=== PATIENT | male | born 1945 | race Two or more races ===

== ENCOUNTER 2022-08-11 00:04 | Inpatient (IN) | payer OTHER ==
[~2022-08-11] VITALS: Ht 182.9 cm; Wt 102.1 kg
--- NOTE | 2022-08-11 00:30 | NUR ---
BLOOD COLLECTED, SENT TO LAB.
[2022-08-11 01:06] LABS: BASOPHILS % (AUTO) 0.2 % (0.0-2.0); HEMATOCRIT 38 % (39-51); HEMOGLOBIN 12.6 g/dL (13.5-17.5); LYMPHOCYTES # (AUTO) 1.4 K/uL (0.8-4.8); LYMPHOCYTES % (AUTO) 17.4 % (20.0-44.0); MEAN CORPUSCULAR HGB CONC 33 g/dl (31.0-36.0); MEAN CORPUSCULAR VOLUME 96 fL (80-96); MONOCYTES # (AUTO) 0.9 K/uL (0.1-1.30); MONOCYTES % (AUTO) 11.6 % (2.0-12.0); NEUTROPHILS # (AUTO) 5.5 K/uL (1.8-8.9); NEUTROPHILS % (AUTO) 69.8 % (43.0-81.0); PLATELET COUNT (AUTO) 219 K/uL (150-450); WHITE BLOOD COUNT (AUTO) 7.9 K/uL (4.3-11.0)
[2022-08-11 01:36] LABS: SERUM AMMONIA 17 umol/L (11-32)
[2022-08-11 01:40] LABS: ALANINE AMINOTRANSFERASE 22 U/L (12-78); ALBUMIN 3.9 g/dL (3.4-5.0); ALCOHOL, BLOOD < 3 mg/dL (0-0); ALKALINE PHOSPHATASE 58 U/L (46-116); ASPARTATE AMINOTRANSFERASE 21 U/L (15-37); BILIRUBIN,DIRECT 0.2 mg/dL (0.0-0.2); BILIRUBIN,TOTAL 0.8 mg/dL (0.2-1.0); CARBON DIOXIDE 26 mmol/L (21-32); CHLORIDE 105 mmol/L (98-107); CREATININE 1.5 mg/dL (0.6-1.3); GLUCOSE 161 mg/dL (74-106); POTASSIUM 3.9 mmol/L (3.5-5.1); SODIUM SERUM 142 mmol/L (136-145); TOTAL PROTEIN, SERUM 7.5 g/dL (6.4-8.2); UREA NITROGEN, BLOOD 28 mg/dL (7-18)
--- NOTE | 2022-08-11 01:42 | NUR ---
URINE COLLECTED, SENT TO LAB.
[2022-08-11 02:07] LABS: BILIRUBIN,URINE NEGATIVE (NEGATIVE); COLOR,URINE YELLOW (YELLOW); LEUKOCYTE ESTERASE ,URINE NEGATIVE (NEGATIVE); NITRITE, URINE NEGATIVE (NEGATIVE); PH,URINE 5.5 (5.0-8.0); PROTEIN,URINE NEGATIVE (NEGATIVE); UGLUCOSE NEGATIVE (NEGATIVE); UROBILINOGEN,URINE 0.2 EU/dL (0.2)
[2022-08-11 02:08] LABS: BACTERIA,URINE Rare /HPF (None Seen); RBC,URINE 0-2 /HPF (0-2); SQUAMOUS EPITHELIAL CELL,UR Moderate /HPF (None Seen); WBC,URINE 0-2 /HPF (0-3)
[2022-08-11] MEDS ORDERED: MAGNESIUM HYDROXIDE 30 ML UDC PO PRN (06:00)
[2022-08-11] MEDS ORDERED: Z GUARD REMEDY 4 OZ OINT TP PRN (06:00)
[2022-08-11] MEDS ORDERED: MAG HYDROX/AL HYDROX/SIMETH 30 ML UDC PO PRN (06:00)
[2022-08-11] MEDS ORDERED: ACETAMINOPHEN 325 MG TABLET PO PRN (06:00)
[2022-08-11] MEDS ORDERED: ONDANSETRON HCL/PF 4 MG/2 ML VIAL IVP PRN (06:00)
--- NOTE | 2022-08-11 08:17 | NUR ---
PT SLEEPING IN BED. BREATHING EVEN AND UNLABORED. CONNECTED TO MONITOR. VSS.
--- NOTE | 2022-08-11 09:28 | NUR ---
ROOM 308-1
--- NOTE | 2022-08-11 09:36 | NUR ---
REPORT GIVEN TO AMANDA FOR ONESIMO
--- NOTE | 2022-08-11 10:00 | NUR ---
RN NOTE PATIENT WAS TRANSFERRED FROM ER TO UNIT VIA GURNEY WITH NO SIGNS OF DISTRESS NOTED. V/S TAKEN, STABLE, RECORDED. BELONGING CHECKED AND BELONGING LIST SIGNED BY RN AND GARAGE CONSTRUCTION EQUIPMENT MECHANIC, PATIENT MONEY WAS PLACED IN THE SAFE (20 X 382= $7640). SKIN ASSESSMENT DONE AND PICTURES TAKEN. A/O X0, ALTER MENTAL STATUS, UNCOOPERATIVE, UNABLE TO FOLLOW DIRECTIONS, PATIENT WAS HITTING STAFF, TAKING OFF BREAKFAST ATTENDANT AND TRYING TO TAKE IV OFF. PATIENT WITH A SITTER AT THE MOMENT. NO S/S OF PAIN NOTED AT THIS TIME. ON ROOM AIR, BREATHING EVEN UNLABORED, NO DISTRESS OR SHORTNESS OF BREATH NOTED. IV ACCESS RFA 20G, INTACT, PATENT AND FLUSHING WELL. PATIENT WITH EXTERNAL BREAKFAST ATTENDANT WITH CURRENT READING OF SR WITH 1ST DEGREE WITH PAC AND PVC AND HR OF 91, NO CARDIAC DISTRESS NOTED. FALL AND SAFETY MEASURES IN PLACE, BED ALARM ON, BED IN LOW AND LOCK POSITION, CALL LIGHT AND TABLE WITHIN EASY REACH, SIDE RAILS UP X2. WILL CONTINUE TO MONITOR.
--- NOTE | 2022-08-11 10:02 | NUR ---
PT TRANSFERRED TO TELE WITH ACLS PROTOCOLS IN PLACE
[2022-08-11] MEDS: IV NS 0.9% 1,000 ML IV PRN (12:17)
[2022-08-11] MEDS ORDERED: HALOPERIDOL LACTATE INJ 5 MG/ML VIAL IM STA (12:23)
[2022-08-11] MEDS ORDERED: LORAZEPAM INJ 2 MG/ML VIAL IM STA (12:23)
--- NOTE | 2022-08-11 12:43 | NUR ---
RN NOTE PATIENT IS COMBATIVE, HITTING STAFF AND DOES NOT FOLLOW DIRECTIONS, MULTIPLE ATTEMPT TO REDIRECT PATIENT WAS MADE, SITTER IS WITH PATIENT, RESTRAIN WAS ORDERED, 5MG HALDOL AND 1MG ATIVAN WAS GIVEN PER DOCTOR ORDER AT BEDSIDE, ORDER WAS PLACED AND SECURITY WAS CALLED AND EMERGENCY SHOT WAS GIVEN, WILL CONTINUE TO MONITOR.
[2022-08-11 15:34] VITALS: BP 148/67
[2022-08-11] MEDS: LORAZEPAM INJ 2 MG/ML VIAL IM PRN ×2 (18:13→23:38)
--- NOTE | 2022-08-11 18:39 | NUR ---
RN CLOSING NOTE A/O X0, ALTER MENTAL STATUS, UNCOOPERATIVE, UNABLE TO FOLLOW DIRECTIONS, PATIENT WITH A SITTER AT THE MOMENT. NO S/S OF PAIN NOTED AT THIS TIME. ON ROOM AIR, BREATHING EVEN UNLABORED, NO DISTRESS OR SHORTNESS OF BREATH NOTED. NO IV ACCESS PATIENT REMOVED HIS IV X2. PATIENT WITH EXTERNAL REHABILITATION AIDE WITH CURRENT READING OF ST WITH PVC AND HR OF 110, NO CARDIAC DISTRESS NOTED. FALL AND SAFETY MEASURES IN PLACE, BED ALARM ON, BED IN LOW AND LOCK POSITION, CALL LIGHT AND TABLE WITHIN EASY REACH, SIDE RAILS UP X2. WILL ENDORSE TO CONTINUOUS PROCESS COFFEE ROASTER NURSE.
--- NOTE | 2022-08-11 19:27 | NUR ---
RN OPENING NOTE PATIENT AWAKE IN BED. A/OX0, GROANING. PATIENT IS SATTING WELL. PATIENT IS RESTLESS, AND HAS ALREADY RECEIVED HIS ATIVAN JUST PRIOR TO SHIFT CHANGE ENDORSED TO THIS RN. NO IV ACCESS AT THIS TIME EVEN WITH SITTER AND RESTRAINTS ORDER PATIENT HAS REMOVED IV ACCESS 2X PRIOR. WILL ATTEMPT AGAIN TO INSERT IV. SAFETY MEASURES IN PLACE: BED LOCKED AND AT LOWEST POSITION, RAILS UP X2, CALL MIGUEL REMOVED FOR SAFETY MEASURES, SITTER (FRANCISCO) PRESENT. WILL CONTINUE TO MONITOR PATIENT. Addendum: 08/11/22 at 1935 by DAMARIS EASLEY RN TELE READS ST 105 W/ 1 DEGREE AV BLOCK.
[2022-08-11 20:00] VITALS: BP 125/83
[2022-08-12] VITALS: BP 121/73
[2022-08-12 04:00] VITALS: BP 153/86
--- NOTE | 2022-08-12 06:53 | NUR ---
RN CLOSING NOTE PATIENT ASLEEP IN BED. A/OX0. NO S/S OF DISTRESS, BREATHING WITHOUT DIFFICULTY ON ROOM AIR. NO IV ACCESS AT THIS NOTED EARLIER; PREVIOUS DAY SHIFT MD MADE AWARE. PATIENT MOVES VIOLENTLY WHEN A.M. INSURANCE RISK SURVEYOR CAME TO DRAW BLOOD; INSURANCE RISK SURVEYOR UNABLE TO DO SO. TELE READS SR 99, 1ST DEGREE BLOCK W/ PVCs AND OCCASIONAL PACs. SAFETY MEASURES IN PLACE: BED LOCKED AND AT LOWEST POSITION, LOW-FOWLERS, RAILS UP X2, CALL MIGUEL WITHIN REACH. SITTER PRESENT IN ROOM. WILL ENDORSE TO NEXT SHIFT FOR ONESIMO.
[2022-08-12 07:00] VITALS: BP 158/72
--- NOTE | 2022-08-12 07:30 | NUR ---
VISITING TEACHER NOTES PT IN BED, AWAKE, RESTLESS IN BED, SITTER AT BEDSIDE, SOFT WRIST RESTRAINTS ON, NON VERBAL AT THIS TIME, SAFETY PRECAUTIONS OBSERVED.
--- NOTE | 2022-08-12 07:58 | NUR ---
WOUND CARE CONSULT: PT PRESENTS WITH SLIGHT REDNESS AND SWELLING TO BILATERAL LOWER LEGS,FEET WITH DRY CALLUS/LESIONS TO FEET AND ANKLE AREAS, PRESENT ON ADMISSION. RECOMMENDATIONS MADE FOR SKIN PROTECTION. DISCUSSED WITH NURSING STAFF. MD IN AGREEMENT WITH PLAN OF CARE.
[2022-08-12 08:00] VITALS: BP 158/72
[2022-08-12 09:08] LABS: BASOPHILS % (AUTO) 0.2 % (0.0-2.0); EOSINOPHILS % (AUTO) 0.8 % (0.0-6.0); HEMATOCRIT 39 % (39-51); HEMOGLOBIN 12.9 g/dL (13.5-17.5); LYMPHOCYTES # (AUTO) 1.1 K/uL (0.8-4.8); LYMPHOCYTES % (AUTO) 10.9 % (20.0-44.0); MEAN CORPUSCULAR HGB CONC 33 g/dl (31.0-36.0); MEAN CORPUSCULAR VOLUME 96 fL (80-96); MONOCYTES # (AUTO) 1.2 K/uL (0.1-1.30); MONOCYTES % (AUTO) 11.8 % (2.0-12.0); NEUTROPHILS # (AUTO) 7.7 K/uL (1.8-8.9); NEUTROPHILS % (AUTO) 76.3 % (43.0-81.0); PLATELET COUNT (AUTO) 229 K/uL (150-450); RED BLOOD CELL COUNT(AUTO) 4.06 MIL/uL (4.5-6.0); WHITE BLOOD COUNT (AUTO) 10.1 K/uL (4.3-11.0)
[2022-08-12] MEDS ORDERED: OLANZAPINE ZYDIS 5 MG TAB.RAPDIS PO PRN (10:00)
[2022-08-12 10:03] LABS: CREATININE 1.2 mg/dL (0.6-1.3); MAGNESIUM 2.4 mg/dL (1.8-2.4); PHOSPHORUS 2.9 mg/dL (2.5-4.9); POTASSIUM 3.7 mmol/L (3.5-5.1)
[2022-08-12] MEDS: LORAZEPAM INJ 2 MG/ML VIAL IM PRN (13:58)
[2022-08-12 16:00] VITALS: BP 154/80
--- NOTE | 2022-08-12 16:19 | NUR ---
SS consult: SS consult requested to locate pt.'s responsible republican. The pt. is a white elderly male who was admitted to [facility] after the pt. became unresponsive on the cab ride home per EMR. The can company tanker truck driver called 911 and pt. was brought to [facility] per EMR. Per EMR, the cabin cleaning supervisor transported pt. to and from a casino located 3 hours away and the pt. became unresponsive on the drive home. SW met with pt. at bedside, the pt. is alert & oriented only to name. The pt. stated that his correct birthday is 1945 and he lives alone at home and has no family, friends, neighbors that can be contacted.The pt. appears unkempt, heavy set, with clear speech and dysphoric mood and affect. Pt. restless and uncooperative with some medical Tx. per sitter. The pt. is still very disoriented but attempting to answer questions when possible. The pt. has poor insight & judgement. NEHA called missing persons tel: [phone] and spoke to officer, Sherwin who stated that no one has reported this individual missing but they did confirm that his address on their file is [[id number] [id number]]. Officer could not provide any telephone numbers or other information. SW notified Navneet OSBORN and marni about correct birthday and address. Plan: Per CM, pt. is a [place] pt. and pt. may possibly transfer to [place] for ongoing care. NEHA left the following resources at bedside: ABUSE PREVENTION: ELDER ABUSE HOTLINE (21/12) ADULT PROTECTIVE SERVICES HOTLINE LONG-TERM CARE [facility] Region AREA ON AGING (HOTLINE) ADULT DAY HEALTH CARE CARE CENTERS: Private pay or Medi-lilibeth funded adult day care [place] Adult Day Health Care [facility] , [facility] , [facility] , [facility] Adult Day Health Care , [facility] Adult Day Health Care , [facility] Adult Daycare Center , Celestine ONE Generation Center , [place] Liv [facility] , [place] ALZHEIMERS DISEASE/DEMENTIA: Alzheimers Association Helpline [facility] Chapter www.alz.org/[facility] Department of Aging www.lacity.org Family Caregiver [place] www.caregiver.org [place] Caregiver Resources Center/Family Support www.losangelessbaptist health louisville.org CANCER RESOURCES: [place] Cancer Society www.cancer.org Cancer Support Community www.CancerSupportVvsb.org: CancerCare www.cancercare.org [facility] Cancer Support [place] www.[facility].org [facility] HEALTH ASSOCIATIONS: AARP www.aarp.org ALS Association (ask for Gina) www.als.org [place] Diabetes Association www.diabetes.org [place] Heart Association www.heart.org [place] Lung Association www.lungusa.org Bh[place] Parkinson Disease Association www.apdaparkinson.org Bhutanese Briar Chapel , www.redcross.org Arthritis Foundation www.arthritis.org Crohns & Colitis Foundation of Bhutanese www.ccfa.org/chapters/prabhjot National Multiple Sclerosis Society www.nationalmssociety.org Myasthenia Gravis Foundation www.myasthenia-ca.org National Stroke Association www.stroke.org CONSERVATORSHIP & GUARDIANSHIP: AARP Melissa Thomas Legal Services Center for Health Care Rights Eldercare Information and Referral Unhairer Foundation [facility]: [facility] Bar Referral Service [facility] Legal Services Office of the Public Guardian [place] EYESIGHT DISORDER RESOURCES: [place] Macular Degeneration Foundation [facility] www.[facility].org GRIEF AND BEREAVEMENT RESOURCES: The [facility] Place , [facility] THE HAYFORK Connection , [facility] Bereavement Center , [place] HEARING DISORDER RESOURCES: [place] Telephone Access Program Deaf and Disabled Telecommunications Program www.ddtp.[facility].ca.gov HearRx Hearing Centers ([place]) Better Hearing Systems , [place] GLAD ([facility] Agency on Deafness) V/ TTY; Redevelopment Specialist , [facility] Hearing [place] [facility] -low income hearing aid assistance www.hca [facility] mercy hospitalfoundation.org [place] [facility] , [place]o HELP AT HOME CAREGIVER SUPPORT: In Home Support Services (Must have Medi-Lilibeth to be eligible) *Ask for a list of agencies that provide services to assist with care in the home. Local Senior Centers also have listings of care providers. HOME SAFETY MODIFICATIONS AND EQUIPMENT: Senior centers have additional referrals. [place] Housing and Community Investment Dept. Handyworker Program (low income) or Visit http://hcidla.[facility].org/rxb-lodtrv-aq for more information National Seating and Mobility and/or ; Forever Active www.foreveractivemed.Komli Media Stay Home Safe www.Stayhomesafe.Komli Media LIFE ALERT RESPONSE SYSTEM: Kromek Services 584-379-3223 www. SteadyMed Therapeutics Life Alert 391-899-2947 www.LeanWagon Life Station 056-123-6231 www.Neuro Heroation.Komli Media Safe Return 346-127-2772 www.alz.or/safereturn Cell Phones for Seniors www.Oviceversa MEALS AND FOOD PROGRAMS: [place] Meals on Wheels [phone] [place] Meals on Wheels [phone] [facility] [phone] [place] to the Homebound [phone] [place] to the Homebound [phone] [facility] to the Homebound [phone] [facility] to the Homebound [phone] [facility] Center[facility] [phone] [facility] [phone] ONE Generation [phone] [facility] [phone] Count Includes The [facility] [phone] Meals on Wheels [phone] For all ages: $6.85/ meal w side. Delivered M-F from 10 am-1pm. Application and payment is done over the phone. Frozen meals available for weekends. Emergency Food Coalition [phone] [facility] Stores Laborer [phone] [facility] [phone] [facility]- Brown bag lunches [phone] [facility] [phone] MEAL/GROCERY DELIVERY PROGRAMS: Sandy Senior Gourmet Meals [phone]- [facility] [phone]- [facility] Magic Kitchen [phone] Moms Meals [phone] (ask [place] for Discount Select grocery stores may provide delivery. MEDICAL INSURANCE SUPPORT SERVICES: Center for Health Care Rights [phone] Health Insurance Counseling/Advocacy Programs (HICAP)-Must have Medicare. Offers counseling for Medi-Lilibeth eligibility [phone] Department of Public Stores Laborer 333-014-[address].[facility].ca.gov Medicare 758-371-7684 www.socialsecurity.org Social Security [phone] SENIOR ACTIVITY PROGRAMS: *Contact a local senior center, adult school, recreation facility or community [facility] for education, fitness, recreation, and social programs. Aquatic Therapy and Adapted Exercise programs through [facility] [phone] Encore at [facility] [phone] www.[facility]/encore U- Senior Friends [phone] [place] Senior Programs [phone] www.oasisnet.org Suddenly 65 www..com SENIOR CENTERS: [facility] [phone] [facility] [phone] [facility] [phone] [facility] [phone] [facility] [phone] [facility] [phone] [facility] [phone] [facility] [phone] One Generation, [facility] / [facility] [phone] [facility] [phone] [facility] [phone] [facility] [phone] [facility] [phone] TRANSPORTATION: Local [facility] Centers may have applications for transportation programs and additional resources. ACCESS Services [phone] Transportation for seniors and disabled persons 7 days a week requiring 254 hr. advance reservation. Must apply and register for program jenifer eligible. CITY RIDE 553-697-2174 or [phone] Transportation for seniors and persons with ADA card/metro disabled card in the [facility]. M-F only. Must register for services. ONE GENERATION [phone] Serves 65 years + in conjunction with city ride program. Must be registered with both programs. A to B Transport [phone] Provides wheelchair/gurney van service. Adult Medical Transport [phone] Accepts [facility] with prior authorization. Care Van [phone] Provides wheelchair Transport. City Wide Transportation [phone] Provides gurney service Gentle Care [phone] Gurney Transport. All Town Transportation [phone] wheelchair & gurney transport D Transportation [phone] wheelchair & gurney transport Outlook Non-Emergency Transport [phone] wheelchair & gurney transport [facility] Living [place] [phone] Short Term Transportation primarily for adults with disabilities on social security income. Nominal fee may apply and a reservation is required. City Cab [phone] or [phone] [facility] [phone] [place] [address] Referral Services -[phone] For additional programs & services VETERANS RESOURCES: Submissions for Aid and Attendance should be done directly to Federal VA office locatd at : [address] [address] X110 National Caregiver Support Line [phone] Lilibeth Brush Veterans Services Field Office [phone] [place] Department of Affairs [phone] Pension Information [phone]
--- NOTE | 2022-08-12 18:12 | NUR ---
FIRE FIGHTER CRASH FIRE AND RESCUE NOTES PT IN BED, AWAKE, ALERT TO SELF, RESPONSIVE TO SOME QUESTIONS, WITH SOME LETHARGY AND CONFUSION, ABLE TO STATE NAME, IVF INFUSING WELL, F/C IN PLACE, DRAINING CLEAR, YELLOW URINE, PM CARE PROVIDED, SAFETY PRECAUTIONS OBSERVED, SITTER AT BEDSIDE.
--- NOTE | 2022-08-12 19:45 | NUR ---
ONCOLOGIST NOTES ST 101 ON TELE MONITOR.RECEIVED ON BED A/O X1,CONFUSED,TALKING TO SELF,LENNON CATH IN PLACE DRAIN YELLOWISH OUTPUT.ON BILATERAL SOFT WRIST RESTRAINT FOR SAFETY,TRYING TO PULL OUT TUBINGS.NOTED SWELLING ON BILATERAL FOOT.PRESENT IVF NS AT 75ML/HR RATE INFUSING WELL ON LEFT AC SALINE LOCK VIA IV PUMP.SITTER AT BEDSIDE FOR SAFETY.NPO STATUS TILL SWALLOW EVAL DONE.WILL CONTINUE TO MONITOR STATUS.
[2022-08-12 21:00] VITALS: BP 156/92
[2022-08-13 04:00] VITALS: BP 156/97
[2022-08-13] MEDS: IV NS 0.9% 1,000 ML IV PRN (05:52)
--- NOTE | 2022-08-13 06:30 | NUR ---
VICE PRESIDENT OF PRODUCT MARKETING NOTES ON BED AWAKE,TALKING TO SELF AT TIMES,SITTER AT BEDSIDE,IVF INFUSING WELL ON LEFT AC SALINE LOCK VIA IV PUMP.LENNON CATH DRAINS WELL,EMPTIED 1350ML OF URINE.OFFERED ATIVAN TO KEEP HIM RELAX BUT REFUSED. HE SAYS " DONT GIVE ME DRUGS ".SOFT WRIST RESTRAINTS IN PLACE RELEASE ONCE IN A WHILE FOR CIRCULATION.SITTER AT BEDSIDE FOR SAFETY.IN NO ACUTE DISTRESS.
--- NOTE | 2022-08-13 07:15 | NUR ---
HOUSE COORDINATOR OPENING NOTES RECEIVED PATIENT IN BED AWAKE, A/O X1-2, CONFUSED, NO ACUTE DISTRESS, TALKING TO SELF WITH SITTER AT BEDSIDE, WITH IVF RUNNING NS @7R ML/MIN WILLIAM #18 SL, INFUSING WELL. LENNON CATH DRAINS WELL. SOFT WRIST RESTRAINTS IN PLACED RELEASE OFTEN FOR CIRCULATION. SITTER AT BEDSIDE FOR SAFETY
[2022-08-13 08:40] LABS: BASOPHILS % (AUTO) 0.4 % (0.0-2.0); EOSINOPHILS % (AUTO) 2.1 % (0.0-6.0); HEMATOCRIT 39 % (39-51); HEMOGLOBIN 12.9 g/dL (13.5-17.5); LYMPHOCYTES # (AUTO) 1.4 K/uL (0.8-4.8); LYMPHOCYTES % (AUTO) 17.1 % (20.0-44.0); MEAN CORPUSCULAR HGB CONC 33 g/dl (31.0-36.0); MEAN CORPUSCULAR VOLUME 96 fL (80-96); MONOCYTES % (AUTO) 11.6 % (2.0-12.0); NEUTROPHILS # (AUTO) 5.8 K/uL (1.8-8.9); NEUTROPHILS % (AUTO) 68.8 % (43.0-81.0); PLATELET COUNT (AUTO) 232 K/uL (150-450); RED BLOOD CELL COUNT(AUTO) 4.04 MIL/uL (4.5-6.0); WHITE BLOOD COUNT (AUTO) 8.4 K/uL (4.3-11.0)
[2022-08-13 08:51] LABS: ALBUMIN 3.4 g/dL (3.4-5.0); BILIRUBIN,TOTAL 0.9 mg/dL (0.2-1.0); CALCIUM, SERUM 8.5 mg/dL (8.5-10.1); CREATININE 1.2 mg/dL (0.6-1.3); MAGNESIUM 2.3 mg/dL (1.8-2.4); PHOSPHORUS 2.9 mg/dL (2.5-4.9); POTASSIUM 3.8 mmol/L (3.5-5.1)
--- NOTE | 2022-08-13 11:50 | NUR ---
PATIENT AWAKE, A/O X2-3, TRYING TO GET OUT OF THE BED. PER ASSESSMENT PATIENT IS STILL UNSTABLE, HOWEVER AWAITING PT EVALUATION. LENNON CATH REMOVED AND IV INSERTION PUT ON HOLD DUE TO PT'S HISTORY OF PULLING IV AND LENNON CATH. PT VERBALIZES "I'M GOING HOME" AND IN FACT, TRYING TO GET OUT OF THE BED MULTIPLE TIMES BUT UNABLE TO. SAFETY BED PROTOCOLS IN PLACED. CHARGE NURSE AWARE. Addendum: 08/13/22 at 1312 by MARCO WAGONER JR, RN SOFT RESTRAINT REMOVED EARLIER
[2022-08-13 15:55] VITALS: BP 148/89
--- NOTE | 2022-08-13 16:18 | NUR ---
PATIENT REFUSED TO SIGN MRI CONSENT WW/O CONTRAST DESPITE EXPLAINING BENEFITS & RISKS.
--- NOTE | 2022-08-13 19:16 | NUR ---
PATIENT HAS BEEN INSISTING TO LEAVE THE HOSPITAL SINCE THIS LATE AFTERNOON DESPITE ALL EFFORTS TO CONVINCE HIM IT'S UNSAFE. PATIENT HAS NOT BEEN CLEARED BY THE PHYSICAL THERAPIST. PATIENT DRESSED UP HIS CLOTHES AND WAS ABLE TO SLOWLY WALK HIS WAY WITH THE AID OF HIS WALKER. PATIENT SIGNED THE AMA FORM. PATIENT WAS GIVEN ADVICE BY THE CHARGE NURSE AND SOMEHOW CHANGED HIS MIND AND DECIDED TO GO BACK TO HIS ROOM TO SLEEP. PATIENT WAS ASSESSED A/O X3 WITH EPISODES OF CONFUSION ALL THROUGHOUT THE DAY.
[2022-08-13 20:00] VITALS: BP 136/70
--- NOTE | 2022-08-13 20:00 | NUR ---
MS RN OPENING NOTES: RECEIVED PATIENT AWAKE IN BED, BED IN LOW POSITION, CALL LIGHTS WITHIN REACH, NO COMPLAIN OF PAIN AND DISCOMFORT AT THIS TIME, ON ROOM AIR SATURATING WELL, NO IV LINE PATIENT REFUSED TO BE REINSERTED, PATIENT HAS HX OF LEAVING THE FACILITY EARLIER, AMA FORM SIGNED, PATIENT WAS MORE ALERT NOW, BUT WAS CONVINCED BY CN TO STAY, PATIENT WAS AMBULATE WITH WALKER WILL CONTINUE TO MONITOR FOR SAFETY, WITH D/C PLAN FOR, PATIENT ON HIS CLOTHES, REFUSED TO CHANGED, WILL CONTINUE TO MONITOR.
[2022-08-13 20:34] VITALS: BP 136/70
--- NOTE | 2022-08-13 23:00 | NUR ---
RN NOTES: REQUESTED A DIET ORDER FROM THE HOSPITALIST PATIENT WAS NPO SINCE HE CAME IN AND ASKING FOR FOOD PATIENT REFUSED IV INSERTION AND IV FLUID HYDRATION, PATIENT WAS MORE ALERT AND ORIENTED NOW ABOUT 3-4, AND HAS A SCHEDULE D/C PLANNING ,DID SWALLOW EVAL FROM LIQUID TO PUDDING NO DIFFICULTY SWALLOWING WAS OBSERVED, SWALLOW EVAL THIS MORNING RECOMMEND / SUGGEST NO SHOWING OF PROBLEM FROM REGULAR DIET, REGULAR DIET WAS ORDERED, WILL CONTINUE TO MONITOR.
[2022-08-14] VITALS: BP 141/85
[2022-08-14 00:51] VITALS: BP 141/85
[2022-08-14 04:00] VITALS: BP 146/87
[2022-08-14 04:25] VITALS: BP 146/87
--- NOTE | 2022-08-14 06:23 | NUR ---
RN CLOSING NOTES: PATIENT AWAKE IN BED , BED IN LOW POSITION, CALL LIGHTS WITHIN REACH, NO COMPLAIN OF PAIN AND DISCOMFORT AT THIS TIME ,ON ROOM AIR SATURATING WELL, PATIENT IS A/O X3-4 ABLE TO MAKE NEEDS KNOWN, AMBULATORY WITH ASSISTANCE USING WALKER, PATIENT FOR D/C PLANNING, REFUSED, IV LINE INSERTION, REFUSED CHANGE OF CLOTHES, REFUSED TELE MONITOR CONNECTION, ALL NEEDS MET ENDORSE TO INCOMING SHIFT.
--- NOTE | 2022-08-14 07:45 | NUR ---
MSNS- Received Pt in bed awake. Pt is A/O x3. Pt is able to walk with assistance of his walker. Pt in room air with non-labored breathing noted. No respiratory distress at this time. Pt able to make needs known. Pt in his clothes and refuses a change of clothes. Bed in low position with bed rails up x2. call light within reach. Will continue to monitor.
[2022-08-14 08:11] VITALS: BP 148/74
--- NOTE | 2022-08-14 13:20 | NUR ---
ms rm patient ate lunch, went home via taxi, discharge instructions given, $7640 winn given to patient.
== END 2022-08-14 13:00 | disposition home health service (06) | DRG 917 ==
LOC: EDBD 00:06 → ER 00:06 → EDBD 09:37 → TELE 09:37
DX: T42.6X1A Poisoning by other antiepileptic and sedative-hypnotic drugs, accidental (unintentional), initial encounter (principal); G92.8 Other toxic encephalopathy; N17.0 Acute kidney failure with tubular necrosis; J98.11 Atelectasis; J90 Pleural effusion, not elsewhere classified; Z20.822 Contact with and (suspected) exposure to COVID-19; Y92.89 Other specified places as the place of occurrence of the external cause; M16.11 Unilateral primary osteoarthritis, right hip; D64.9 Anemia, unspecified; G93.89 Other specified disorders of brain; Z86.73 Personal history of transient ischemic attack (TIA), and cerebral infarction without residual deficits; Z78.1 Physical restraint status; I51.7 Cardiomegaly; N18.9 Chronic kidney disease, unspecified; F29 Unspecified psychosis not due to a substance or known physiological condition; F06.8 Other specified mental disorders due to known physiological condition
CPT/HCPCS: 36415; 70450-TC; 71045-TC; 76770-TC; 80048-TC; 80053-TC; 80076-TC; 81001; 82140-TC; 83735-TC; 84100-TC; 85025-TC; 87081-TC; 92526; 92611-TC; 97116-TC; 97530-TC; A4223; C9803; G0378; G0480; J1630; J2060; J7030